=== PATIENT | female | born 1945 | race Native Hawaiian/Other Pacific Islander ===

== ENCOUNTER 2017-06-03 02:35 | Inpatient (IN) | payer MEDICARE, OTHER ==
[2017-06-03 02:44] VITALS: BMI 28.3
[2017-06-03] MEDS ORDERED: Sodium Chloride 0.9% 1,000 ML IV STA (02:47)
[2017-06-03] MEDS ORDERED: Morphine 4 mg/ml ISec IVP STA (02:48)
--- NOTE | 2017-06-03 02:52 | ED PDOC ---
Arrival/HPI - General Chief Complaint: Abdominal Pain Time Seen by Provider: 06/03/17 02:41 Historian: Patient - History of Present Illness Narrative History of Present Illness (Text): 06/03/17 02:49 71 y.o. female whose pmhx includes CABG/CAD with stents, DM, HTN, hyperlipidemia , and CRI who comes to the ED with complaint of blood diarrhea associated with lower abdominal pain beginning yesterday evening shortly after dinner. She reports a feeling of generalized weakness associated with it as well as nausea but no vomiting. No fever or cp or sob or dizziness or headache or urinary symptoms. No travel history or recent antibiotic use. Past Medical History - Reproductive Menopause: Yes - Cardiac Hx Hypertension: Yes Hx Pacemaker: No - Pulmonary Hx Respiratory Disorders: No - Neurological Hx Neurological Disorder: No Hx Paralysis: No - HEENT Hx HEENT Disorder: No - Renal Other/Comment: kidney disease stage 4 - Endocrine/Metabolic Hx Diabetes Mellitus Type 2: Yes - Hematological/Oncological Hx Blood Disorders: No Hx Blood Transfusions: No Hx Blood Transfusion Reaction: No - Integumentary Hx Dermatological Disorder: No - Musculoskeletal/Rheumatological Hx Musculoskeletal Disorders: No - Gastrointestinal Hx Gastrointestinal Disorders: No - Genitourinary/Gynecological Hx Genitourinary Disorders: No - Psychiatric Hx Emotional Abuse: No Hx Physical Abuse: No Hx Substance Use: No - Surgical History Other/Comment: cardiac bypass 2yrs 1 stent - Anesthesia Hx Anesthesia Reactions: No Hx Malignant Hyperthermia: No - Suicidal Assessment Feels Threatened In Home Enviroment: No Family/Social History Family/Social History: Unknown Family HX Smoking Status: Never Smoked Hx Alcohol Use: No Hx Substance Use: No Allergies/Home Meds Allergies/Adverse Reactions: Allergies erythromycin base Allergy (Severe, Verified 06/03/17 02:48) RASH Penicillins Allergy (Severe, Verified 06/03/17 02:48) RASH Home Medications: Home Meds Medication Instructions Recorded Confirmed Ezetimibe/Simvastatin [Vytorin 10 1 tab PO QPM 01/16/16 06/03/17 mg-10 mg] Lanthanum [Fosrenol] 500 mg PO ACBD 01/16/16 06/03/17 Metoprolol Succinate [Toprol Xl] 500 mg PO DAILY 01/18/16 06/03/17 Aspirin [Aspirin Chewable] 81 mg PO DAILY 06/03/17 06/03/17 Azilsartan Med/Chlorthalidone 1 tab PO DAILY 06/03/17 06/03/17 [Edarbyclor 40-25 mg Tablet] Clopidogrel [Plavix] 75 mg PO DAILY 06/03/17 06/03/17 Insulin Aspart, Recombinant 16 unit SC ACTID 06/03/17 06/03/17 [Novolog] Insulin Glargine,Hum.rec.anlog 22 unit SQ QPM 06/03/17 06/03/17 [Liliane Aguilar] Review of Systems - Physician Review All systems were reviewed & negative as marked: Yes - Review of Systems Constitutional: Fatigue Eyes: Normal ENT: Normal Respiratory: Normal Cardiovascular: Normal Gastrointestinal: Abdominal Pain, Diarrhea, Nausea, Hematochezia. absent: Vomiting Genitourinary Female: Normal Musculoskeletal: Normal Skin: Normal Neurological: Normal. absent: Headache, Dizziness, Focal Weakness Endocrine: absent: Polyuria, Polydipsia Hemo/Lymphatic: Normal Psychiatric: Normal Physical Exam Vital Signs Temp Pulse Resp BP Pulse Ox 06/03/17 05:00 50 L 16 143/55 L 100 06/03/17 03:27 98.4 F 53 L 18 143/53 L 100 Temperature: Afebrile Blood Pressure: Normal Pulse: Regular Respiratory Rate: Normal Appearance: Positive for: Non-Toxic Pain Distress: Mild Mental Status: Positive for: Alert and Oriented X 3 - Systems Exam Head: Present: Atraumatic, Normocephalic Pupils: Present: PERRL Conjunctiva: Present: Normal Mouth: Present: Moist Mucous Membranes Pharnyx: Present: Normal. No: ERYTHEMA, EXUDATE Neck: Present: Normal Range of Motion Respiratory/Chest: Present: Clear to Auscultation, Good Air Exchange. No: Respiratory Distress, Accessory Muscle Use Cardiovascular: Present: Regular Rate and Rhythm, Normal S1, S2. No: Murmurs Abdomen: Present: Tenderness (ttp in the LLQ), Normal Bowel Sounds. No: Distention, Peritoneal Signs Rectal: Present: Gross Blood (present on exam; no active hemorrhaging (exam chaperoned by devi Flores)) Back: Present: Normal Inspection Upper Extremity: Present: Normal Inspection. No: Cyanosis, Edema Lower Extremity: Present: Normal Inspection. No: Edema Neurological: Present: GCS=15, CN II-XII Intact, Speech Normal Skin: Present: Warm, Dry, Normal Color. No: Rashes Psychiatric: Present: Alert, Oriented x 3, Normal Insight, Normal Concentration Medical Decision Making ED Course and Treatment: 06/03/17 02:53 71 y.o. female with noted past medical history presenting with bloody diarrhea since the evening: Differential: colitis vs divertculitis vs gastroenteritis 06/03/17 05:05 CT Abdomen and Pelvis Without Intravenous Contrast Creator : Maryann Talavera MD IMPRESSION: - Question mild enterocolitis involving the distal ileum and ascending colon versus pseudo-wall thickening due to incomplete distention. Recommend clinical correlation. - Otherwise, no evidence of significant acute process. - See above for remaining findings. 06/03/17 05:15 Patient with noted history of bloody diarrhea with gross blood on rectal exam. H/H is stable. CT shows possible enterocolitis. Patient with prerenal azotemia with a history of DM - will need ivf, abx, and GI eval. 06/03/17 05:[address] Gastelum for placement on his service. - Lab Interpretations Lab Results: 06/03/17 03:20 06/03/17 03:20 Lab Results 06/03/17 03:20: pO2 122 H, VBG pH 7.32, VBG pCO2 43.0, VBG HCO3 22.2, VBG Total CO2 23.5, VBG O2 Sat (Calc) 98.4 H, VBG Base Excess -3.9 L, VBG Potassium 5.9 H , Sodium 136.0, Chloride 105.0, Glucose 245 H, Lactate 2.1, FiO2 21.0, Venous Blood Potassium 5.9 H 06/03/17 03:20: Sodium 137, Chloride 102, Potassium 5.2 H, Carbon Dioxide 22, Anion Gap 18, BUN 72 H, Creatinine 2.2 H, Est GFR ( Amer) 27, Est GFR ( Non-Af Amer) 22, Random Glucose 223 H, Calcium 10.1, Total Bilirubin 0.6, AST 42 H, ALT 50, Alkaline Phosphatase 44, Lactate Dehydrogenase 672, Total Creatine Kinase 140, Troponin I 0.02, Total Protein 7.8, Albumin 4.6, Globulin 3.2, Albumin/Globulin Ratio 1.4, Amylase 142 H, Lipase 167 06/03/17 03:20: PT 10.1, INR 0.93, APTT 23.2 L 06/03/17 03:20: WBC 7.5, RBC 3.63, Hgb 11.0 L, Hct 32.1 L, MCV 88.4, MCH 30.3, MCHC 34.3, RDW 12.3, Plt Count 124, MPV 9.1, Gran % 80.2 H, Lymph % (Auto) 16.6 L, [place] % (Auto) 2.9, Eos % (Auto) 0.3 L, Baso % (Auto) 0.0, Gran # 5.99, Lymph # 1.2, [place] # 0.2, Eos # 0.0, Baso # 0.00 - RAD Interpretation Radiology Orders: 06/03/17 02:47 CHEST PORTABLE [RAD] Stat 06/03/17 02:49 ABD & PELVIS W/O PO OR IV CONT [CT] Stat - EKG Interpretation EKG Interpretation (Text): 06/03/17 05:03 sinus bradycardia @ 55 with nonspecifict T wave abnormalities; QT is 506; other intervals normal; low qrs voltage; no old ekg for comparison. Interpreted by ED Physician: Yes Type: 12 lead EKG Comparison: No previous EKG avail. - Medication Orders Current Medication Orders: Metronidazole (Flagyl) 500 mg in 100 mls @ 100 mls/hr IVPB STAT STA PRN Reason: Protocol Stop: 06/03/17 06:13 Ceftriaxone Sodium (Rocephin 1 Gram Ivpb) 1 gm in 100 mls @ 200 mls/hr IV ONCE STA PRN Reason: Protocol Stop: 06/03/17 05:42 Discontinued Medications Famotidine (Pepcid) 20 mg IVP STAT STA Stop: 06/03/17 02:47 Last Admin: 06/03/17 03:26 Dose: 20 mg IVP Administration Document 06/03/17 03:26 YP (Rec: 06/03/17 03:26 YP [id number]) Charges for Administration # of IVP Administrations 1 Sodium Chloride (Sodium Chloride 0.9%) 1,000 mls @ 999 mls/hr IV .Q1H1M STA Stop: 06/03/17 03:47 Last Admin: 06/03/17 03:26 Dose: 999 mls/hr eMAR Start Stop Document 06/03/17 03:26 YP (Rec: 06/03/17 03:26 YP [id number]) Intravenous Solution Start Date 06/03/17 Start Time 03:26 End Date 06/03/17 End time 04:26 Total Infusion Time 60 Morphine Sulfate (Morphine) 4 mg IVP STAT STA Stop: 06/03/17 02:49 Last Admin: 06/03/17 03:26 Dose: 4 mg [facility] Pain Assessment Document 06/03/17 03:26 YP (Rec: 06/03/17 03:26 YP [id number]) Pain Reassessment Is this a pain reassessment? No Sleep Is patient sleeping during reassessment? No Presence of Pain Presence of Pain Yes IVP Administration Document 06/03/17 03:26 YP (Rec: 06/03/17 03:26 YP [id number]) Charges for Administration # of IVP Administrations 1 Re-Assess: [facility] Pain Assessment Document 06/03/17 04:26 YP (Rec: 06/03/17 05:09 YP [id number]) Pain Reassessment Is this a pain reassessment? Yes Sleep Is patient sleeping during reassessment? No Presence of Pain Presence of Pain No Ondansetron HCl (Zofran Inj) 4 mg IVP STAT STA Stop: 06/03/17 02:47 Last Admin: 06/03/17 03:26 Dose: 4 mg IVP Administration Document 06/03/17 03:26 YP (Rec: 06/03/17 03:27 YP [id number]) Charges for Administration # of IVP Administrations 1 Disposition/Present on Arrival - Present on Arrival Any Indicators Present on Arrival: No History of DVT/PE: No History of Uncontrolled Diabetes: No Urinary Catheter: No History of Decub. Ulcer: No History Surgical Site Infection Following: None - Disposition Have Diagnosis and Disposition been Completed?: Yes Diagnosis: Enterocolitis, Bloody diarrhea Disposition: HOSPITALIZED Disposition Time: 05:00 Patient Plan: Observation Patient Problems: Current Active Problems Problem Status Onset Bloody diarrhea Acute Enterocolitis Acute Condition: FAIR
[2017-06-03 03:48] LABS: EOS % 0.3 % (1.5-5.0); GRAN # 5.99 (1.4-6.5); GRAN % 80.2 % (50.0-68.0); HEMATOCRIT 32.1 % (36.0-48.0); LYMPH # 1.2 (1.2-3.4); LYMPH % 16.6 % (22.0-35.0); MEAN CELL VOLUME 88.4 fl (80.0-105.0); MEAN CORPUSCULAR HEMOGLOBIN 30.3 pg (25.0-35.0); MEAN CORPUSCULAR HGB CONC 34.3 g/dl (31.0-37.0); MEAN PLATELET VOLUME 9.1 fl (7.0-11.0); MONO # 0.2 (0.1-0.6); MONO % 2.9 % (1.0-6.0); RED CELL DISTRIBUTION WIDTH 12.3 % (11.5-14.5); WHITE BLOOD COUNT 7.5 10^3/ul (4.5-11.0)
[2017-06-03 03:52] LABS: ALB/GLOB RATIO 1.4 (1.1-1.8); BILIRUBIN,TOTAL 0.6 mg/dL (0.2-1.3); CALCIUM 10.1 mg/dL (8.4-10.5); POTASSIUM 5.2 mmol/L (3.6-5.0); TOTAL PROTEIN 7.8 g/dL (5.8-8.3)
[2017-06-03 03:56] LABS: VENOUS BLOOD GAS BASE EXCESS -3.9 mmol/L (0.0-2.0); VENOUS BLOOD PH 7.32 (7.32-7.43)
[2017-06-03 04:00] LABS: INR 0.93 (0.93-1.08); PARTIAL THROMBOPLASTIN TIME 23.2 Seconds (25.1-36.5)
[2017-06-03 04:03] LABS: TROPONIN I 0.02 ng/mL
--- NOTE | 2017-06-03 04:56 | CT ---
EXAM: CT Abdomen and Pelvis Without Intravenous Contrast EXAM DATE/TIME: 06/03/2017 2:49 AM CLINICAL HISTORY: 71 years old, female; Pain; Abdominal pain; Generalized; Additional info: Abd pain, bloody diarrhea; Renal insufficiency TECHNIQUE: Axial computed tomography images of the abdomen and pelvis without intravenous contrast. All CT scans at this facility use one or more dose reduction techniques, viz.: automated exposure control; ma/kV adjustment per patient size (including targeted exams where dose is matched to indication; i.e. head); or iterative reconstruction technique. Coronal and sagittal reformatted images were created and reviewed. COMPARISON: No relevant prior studies available. FINDINGS: LIMITATIONS: Mild streak/motion artifact. LOWER THORAX: Heart appears mildly enlarged. Sternotomy wires and multiple mediastinal surgical clips noted, most likely from prior CABG. ABDOMEN: LIVER: No acute abnormality of the liver identified. GALLBLADDER AND BILE DUCTS: No CT evidence of acute cholecystitis. No evidence of significant biliary ductal dilatation. PANCREAS: No CT evidence of acute pancreatitis. SPLEEN: No acute abnormality of the spleen identified. ADRENALS: No acute abnormality of the adrenal glands identified. KIDNEYS AND URETERS: Bilateral perinephric stranding, a nonspecific finding. No renal stones, hydronephrosis, or hydroureter seen. STOMACH AND BOWEL: Mild wall thickening of the distal ileum and ascending colon. This could represent pseudo-wall thickening due to underdistention/incomplete distension versus mild enterocolitis. Colonic diverticulosis, with no evidence of acute diverticulitis. Otherwise, no significant abnormality of the bowel is identified. No evidence of bowel obstruction. No evidence of pneumatosis intestinalis. APPENDIX: High density material seen in the lumen of the appendix. This could represent retained oral contrast from a prior study versus appendicoliths. There are no findings to suggest acute appendicitis.. PELVIS: BLADDER: No acute abnormality of the bladder identified. REPRODUCTIVE:No acute abnormality of the reproductive organs is seen. No acute abnormality of the uterus identified. No evidence of large adnexal masses. ABDOMEN and PELVIS: INTRAPERITONEAL SPACE: No evidence of free intraperitoneal air or fluid. BONES/JOINTS: Bony structures appear demineralized. SOFT TISSUES: No acute abnormality of the visualized soft tissues is seen. VASCULATURE: Atherosclerotic calcification. No evidence of abdominal aortic aneurysm. LYMPH NODES: No evidence of diffuse lymphadenopathy. IMPRESSION: - Question mild enterocolitis involving the distal ileum and ascending colon versus pseudo-wall thickening due to incomplete distention. Recommend clinical correlation. - Otherwise, no evidence of significant acute process. - See above for remaining findings.
[2017-06-03] MEDS ORDERED: cefTRIAXone 1 gm 1 GM/100 ML BAG IV STA (05:13)
[2017-06-03] MEDS ORDERED: metroNIDAZOLE IV 500 mg/100 ml 500 MG/100 ML BAG IVPB STA (05:14)
[2017-06-03 06:37] LABS: VENOUS BLOOD GAS BASE EXCESS -5.9 mmol/L (0.0-2.0); VENOUS BLOOD PH 7.24 (7.32-7.43)
[2017-06-03] MEDS ORDERED: Dextrose 5%/0.9% NS 1,000 ML IV SCH (06:45)
--- NOTE | 2017-06-03 08:57 | RAD ---
HISTORY: abd pain COMPARISON: No prior. FINDINGS: LUNGS: No active pulmonary disease. PLEURA: No significant pleural effusion identified, no pneumothorax apparent. CARDIOVASCULAR: Normal. OSSEOUS STRUCTURES: Sternal wires VISUALIZED UPPER ABDOMEN: Normal. OTHER FINDINGS: None. IMPRESSION: No active disease.
[2017-06-03] MEDS ORDERED: Morphine 2 mg/ml ISec IVP PRN (09:12)
[2017-06-03] MEDS ORDERED: Oxycodone/Acetaminophen 5/325 mg Tab PO PRN (09:13)
[2017-06-03] MEDS ORDERED: Vancomycin 2 GM in Sodium Chloride 0.9% 500 ML IVPB ONE (09:17)
[2017-06-03] MEDS ORDERED: Ciprofloxacin 400mg/200ml D5W 400 MG/200 ML BAG IVPB SCH (10:00)
--- NOTE | 2017-06-03 10:34 | HP ---
CHIEF COMPLAINT AND HISTORY OF PRESENT ILLNESS: This is a 71-year-old female who is coming into hospital with a past medical history of coronary artery disease, CABG with stents, diabetes type 2, hypertension, dyslipidemia, and CKD. She says she started having bloody diarrhea that was associated with lower abdominal pain. The patient says that she started having nausea, but no vomiting. She was having diarrhea. She was generalized weakness. The patient denies any chest pain or shortness of breath. No headaches. No fevers or chills. They initially thought that it may be food related. ALLERGIES: PENICILLIN AND ERYTHROMYCIN. HOME MEDICATIONS: Vytorin, lanthanum, Toprol, aspirin, Edarbyclor, Plavix, NovoLog, insulin, and glargine. PAST MEDICAL HISTORY: As above. FAMILY HISTORY: Noncontributory. SOCIAL HISTORY: She does not smoke or drink. Denies alcohol and denies drug use. REVIEW OF SYSTEMS: All other review of symptoms are within normal limits, except I was mentioned. PHYSICAL EXAMINATION: VITAL SIGNS: Temperature 98.4, pulse of 53, blood pressure 143/53, respirations 18, O2 saturation 100%, height 5 feet 1 inch, weight 150 pounds, and BMI 28. GENERAL: The patient lying in bed, uncomfortable, and in no acute distress. HEENT: Atraumatic and normocephalic. Anicteric sclerae. Moist mucosa. [place] conjunctivae. No oral lesions. NECK: No JVD, anterior and posterior adenopathy, thyromegaly, or bruits. CARDIOVASCULAR: S1 and S2 regular. No murmur, rubs, or gallop. LUNGS: Clear to auscultation bilaterally. No wheezes, rales, or rhonchi. ABDOMEN: Bowel sounds are positive. Soft, nontender and nondistended. No hepatosplenomegaly. No rebound and no guarding EXTREMITIES: No cyanosis, clubbing, or edema. NEUROLOGIC: No facial asymmetry. Tongue is midline. No vulva deviation. Power is 5/5 upper extremity and lower extremity. Sensation intact in upper extremity and lower extremity. PSYCHIATRIC: She is awake, alert and oriented x3. No anxiety or depression. She has normal affect. GENITOURINARY: No CVA tenderness. VASCULAR: 2+ pulses in the carotid pulses and pedal pulses. SKIN: No erythema or nodules SPINE: Shows normal curvature. EXTREMITIES: No cyanosis and clubbing, no edema. LABORATORY DATA: White count of 7.5 and hemoglobin of 11. INR is 0.93. Sodium is 137, potassium 5.2, creatinine 2.2, amylase is 142, and lipase is 167. Chest x-ray shows no active disease. CT of the abdomen and pelvis shows questionable mild enterocolitis involving the distal ileum and ascending colon versus pseudo-wall thickening due to incomplete distention. ASSESSMENT: 1. Colitis. 2. Coronary artery disease, status post coronary artery bypass grafting with stent. 3. Diabetes type 2. 4. Hypertension. 5. Dyslipidemia. 6. Chronic kidney disease stage IV, stable. 7. Hypokalemia. 8. Penicillin allergy and erythromycin allergy. PLAN: The patient is going to be admitted to the hospital. She is going to be placed on liquid diet. She does have diabetes, hypertension, coronary artery disease, and inflammation that is in the colon. This may be ischemic colitis. I did speak to Dr. Vitale from GI, who will be seeing the patient in consultation. The patient has a penicillin allergy, so I will place the patient on Cipro. We will get ID evaluation because this is a restricted antibiotic. The patient is going to be placed on Flagyl. I will also place the patient on D5 normal saline for hypokalemia and for the diarrhea that the patient has to prevent volume depletion. The patient is on Toprol, this will be continued and he is on aspirin, I will continue that. For now, the patient is currently comfortable. I will continue the patient's Plavix, hold the patient's blood pressure medications and insulin and continue to follow with vitals and fingerstick. I did speak to the patient's at the bedside to give an update on the patient's diagnoses and plan of care. The patient is going to have repeat blood work done tomorrow. The patient had EKG and she was found to have tachycardic initially. She is feeling better. Pain is better controlled. Dariusz Gastelum MD
[2017-06-03] MEDS: Aztreonam 1 Gm in NS 100mL 100 ML IVPB SCH ×2 (11:11→17:41)
[2017-06-03] MEDS: Metoprolol Succinate 50 mg XL Tab PO SCH (11:12)
[2017-06-03 11:51] LABS: URINE BILIRUBIN NEGATIVE (NEGATIVE); URINE BLOOD NEGATIVE (NEGATIVE); URINE GLUCOSE (UA) NEGATIVE (NEGATIVE); URINE KETONE NEGATIVE (NEGATIVE); URINE LEUKOCYTE ESTERASE TRACE Leu/uL (NEGATIVE); URINE PROTEIN NEGATIVE mg/dL (<30 mg/dL); URINE UROBILINOGEN 0.2 E.U./dL (<1 E.U./dL)
[2017-06-03 11:56] LABS: URINE APPEARANCE CLEAR (CLEAR); URINE COLOR YELLOW (YELLOW)
[2017-06-03 12:18] LABS: URINE BACTERIA TRACE (NEG); URINE EPITHELIAL CELLS 0 - 2 /hpf (0-5); URINE RBC NEGATIVE /hpf (0-2)
--- NOTE | 2017-06-03 12:52 | CP.PCM.CON ---
History of Present Illness - History of Present Illness History of Present Illness: 71 year old female with PMH of CAD S/P CABG, S/P PCI, DM, HTN, dyslipidemia, chronic renal failure came in to [facility] complaining of lower abdominal pain since yesterday associated with bloody diarrhea. She states that she only ate steak yesterday and has not eaten anything else out of the ordinary. She also has generalized weakness but denies fever or chills, no nausea or vomiting, no dysuria, no dysphagia or odynophagia, no headache or dizziness, no chest pain, no SOB, no cough or colds, no sore throat. She denies recent travel outside of [place] in the past 3 months, no animal contacts. She has not been on antibiotics in the past [address] scan of the abdomen and pelvis showed enterocolitis. Infectious diseases consult is requested to further evaluate and manage. Review of Systems - Review of Systems All systems: reviewed and no additional remarkable complaints except (as per HPI ) Past Patient History - Past Social History Smoking Status: Never Smoked - CARDIAC Hx Hypertension: Yes Hx Pacemaker: No - PULMONARY Hx Respiratory Disorders: No - NEUROLOGICAL Hx Neurological Disorder: No - HEENT Hx HEENT Problems: No - RENAL Other/Comment: kidney disease stage 4 - ENDOCRINE/METABOLIC Hx Diabetes Mellitus Type 2: Yes - HEMATOLOGICAL/ONCOLOGICAL Hx Blood Disorders: No - INTEGUMENTARY Hx Dermatological Problems: No - MUSCULOSKELETAL/RHEUMATOLOGICAL Hx Musculoskeletal Disorders: No Hx Falls: No - GASTROINTESTINAL Hx Gastrointestinal Disorders: No - GENITOURINARY/GYNECOLOGICAL Hx Genitourinary Disorders: No - PSYCHIATRIC Hx Emotional Abuse: No Hx Physical Abuse: No - SURGICAL HISTORY Other/Comment: cardiac bypass 2yrs 1 stent - ANESTHESIA Hx Anesthesia Reactions: No Hx Malignant Hyperthermia: No Meds Allergies/Adverse Reactions: Allergies Allergy/AdvReac Type Severity Reaction Status Date / Time erythromycin base Allergy Severe RASH Verified 06/03/17 02:48 Penicillins Allergy Severe RASH Verified 06/03/17 02:48 - Medications Medications: Current Medications Acetaminophen (Tylenol 325mg Tab) 650 mg PO Q4H PRN PRN Reason: Pain, Mild (1-3) Aspirin (Aspirin Chewable) 81 mg PO DAILY JOSE Clopidogrel Bisulfate (Plavix) 75 mg PO DAILY [facility] Dextrose/Sodium Chloride (Dextrose 5%/0.9% Ns 1000 Ml) 1,000 mls @ 75 mls/hr IV .[id number] JOSE Stop: 06/04/17 09:24 Ciprofloxacin (Cipro 400mg/200ml Dsw) 400 mg in 200 mls @ 133.3 mls/hr IVPB Q12 JOSE PRN Reason: Protocol Stop: 06/03/17 11:31 Insulin Human Regular (Humulin R High) 0 units SC ACHS JOSE PRN Reason: Protocol Metoprolol Succinate (Toprol Xl) 50 mg PO DAILY [facility] Morphine Sulfate (Morphine) 2 mg IVP Q4H PRN PRN Reason: Pain, severe (8-10) Oxycodone/Acetaminophen (Percocet 5/325 Mg Tab) 1 tab PO Q4H PRN PRN Reason: Pain, moderate (4-7) Stop: 06/06/17 09:14 Physical Exam - Constitutional Appears: Non-toxic - Head Exam Head Exam: NORMAL INSPECTION - ENT Exam ENT Exam: Mucous Membranes Moist - Neck Exam Neck exam: Negative for: Lymphadenopathy, Meningismus - Respiratory Exam Respiratory Exam: absent: Rales, Rhonchi - Cardiovascular Exam Cardiovascular Exam: +S1, +S2 - GI/Abdominal Exam GI & Abdominal Exam: Soft, Tenderness (lower quadrants). absent: Distended, Firm, Guarding, Rebound, Rigid Results - Vital Signs Recent Vital Signs: Last Vital Signs Temp 98.4 F 06/03/17 03:27 Pulse 50 L 06/03/17 08:29 Resp 18 06/03/17 08:29 BP 143/55 L 06/03/17 08:29 Pulse Ox 100 06/03/17 05:00 - Labs Result Diagrams: 06/03/17 03:20 06/03/17 03:20 Labs: Laboratory Results - last 24 hr 06/03/17 06:20 pO2 51 VBG pH 7.24 L VBG pCO2 51.0 VBG HCO3 21.9 VBG Total CO2 23.5 VBG O2 Sat (Calc) 86.1 H VBG Base Excess -5.9 L VBG Potassium 4.4 Sodium 138.0 Chloride 107.0 Glucose 191 H Lactate 1.6 FiO2 21.0 Venous Blood Potassium 4.4 Assessment & Plan - Assessment and Plan (Free Text) Plan: Assessment Consider acute enterocolitis, R/O infectious etiology CAD S/P CABG S/P PCI DM HTN dyslipidemia chronic renal failure Plan Started patient on a dose of IV Vancomycin and Azactam and Flagyl pending blood and stool cx, stool for C. diff., fecal leukocytes follow up GI recommendations will monitor clinically
[2017-06-03] MEDS: metroNIDAZOLE IV 500 mg/100 ml 500 MG/100 ML BAG IVPB SCH ×3 (13:08→21:47)
[2017-06-03] MEDS: Insulin Reg-HIGH-Coverage SC SCH ×3 (13:12→22:30)
--- NOTE | 2017-06-03 23:23 | CARD ---
APPROVED REPORT EKG Measurement Heart [id number] <Conclusion> Sinus bradycardia Nonspecific T wave abnormality Prolonged QT Abnormal ECG
--- NOTE | 2017-06-04 03:03 | CON ---
DATE: 06/03/2017 HISTORY OF PRESENT ILLNESS: This patient was seen and evaluated earlier today. This is a 71-year-old patient presented with an acute onset of diarrhea since yesterday. The patient said that she ate steak, which she said was nearly expiry date, and she cooked it and kept it to one more day then ate the steak, and it happened *------*. She also noticed the stool was like a bloody in color after that and worsening of the cramping, abdominal pain, came to the emergency room. She also got a fever. She never had a similar episodes day four. PAST MEDICAL HISTORY: Other past medical history is significant for diabetes mellitus, hypertension, coronary artery disease, status post CABG, status post PCI, dyslipidemia, and chronic kidney disease. ALLERGIES: PENICILLIN AND ERYTHROMYCIN. FAMILY HISTORY: Noncontributory. REVIEW OF SYSTEMS: Positive as above. All other systems reviewed. PHYSICAL EXAMINATION: GENERAL: The patient is lying on the bed, not in acute distress. VITAL SIGNS: Temperature is 98.4, blood pressure 118/51, pulse 52, respiration is 20, and O2 saturation 100%. HEENT: Atraumatic. Anicteric. NECK: Supple. HEART: S1 and S2 heard. LUNGS: Bilateral air entry present. ABDOMEN: Soft. There is a mild tenderness present on deep palpation. The epigastric in the right lower quadrant area, no rebound or guarding. EXTREMITIES: No edema, no cyanosis. LABORATORY DATA: Hemoglobin 11.0, hematocrit 32.1, WBC 7.5 and platelets 124. BUN 72, creatinine 2.2, amylase 142. The CT scan of the abdomen and pelvis was reviewed. IMPRESSION: This is a 71-year-old patient with history of diabetes mellitus, coronary artery disease, dyslipidemia presented with acute onset of an abdominal pain, diarrhea, and fever. She said this happened after she ate steak, which was close to the expiry date. CT scan shows some thickening and inflammatory changes in the terminal ileum and ascending colon area. The differential diagnoses should include ischemic colitis in view of the distribution of the colitis and also infectious colitis is to be considered. Inflammatory bowel disease less likely in her condition with this clinical presentation. Other comorbidities include diabetes mellitus, hypertension, dyslipidemia, and chronic kidney disease. RECOMMENDATIONS: 1. IV hydration. 2. Follow of the culture including stool culture. 3. We will empirically start the patient on Cipro 250 mg IV q. 12 hour and also Flagyl 500 mg q. 8 hour. Infectious Disease consult has been also requested. Discussed with Dr. Gastelum. Discussed with the family also, the patient never had a colonoscopy. It is reasonable to consider colonoscopy as an outpatient. Thank you very much for allowing me to participate in the care of the patient. Ja Vitale MD
[2017-06-04] MEDS: metroNIDAZOLE IV 500 mg/100 ml 500 MG/100 ML BAG IVPB SCH ×3 (05:53→21:27)
[2017-06-04 07:29] LABS: HEMATOCRIT 30.4 % (36.0-48.0); MEAN CELL VOLUME 88.1 fl (80.0-105.0); MEAN CORPUSCULAR HGB CONC 32.9 g/dl (31.0-37.0); MEAN PLATELET VOLUME 8.8 fl (7.0-11.0); RED CELL DISTRIBUTION WIDTH 12.4 % (11.5-14.5); WHITE BLOOD COUNT 7.1 10^3/ul (4.5-11.0)
[2017-06-04 07:40] LABS: ALB/GLOB RATIO 1.3 (1.1-1.8); BILIRUBIN,TOTAL 0.4 mg/dL (0.2-1.3); CALCIUM 9.2 mg/dL (8.4-10.5); POTASSIUM 4.6 mmol/L (3.6-5.0); TOTAL PROTEIN 6.7 g/dL (5.8-8.3)
[2017-06-04] MEDS: Insulin Reg-HIGH-Coverage SC SCH ×4 (07:46→22:51)
[2017-06-04] MEDS: Metoprolol Succinate 50 mg XL Tab PO SCH (09:25)
[2017-06-04] MEDS: Aztreonam 1 Gm in NS 100mL 100 ML IVPB SCH ×3 (10:54→22:50)
--- NOTE | 2017-06-04 12:12 | CP.PCM.PN ---
<Pam Fonseca - Last Filed: 06/04/17 12:11> Subjective - Date & Time of Evaluation Date of Evaluation: 06/04/17 Time of Evaluation: 10:35 - Subjective Subjective: S&E at bedside, patient endorses when she vomits, she has dark bloody BM, had episodes last night and this am. She denies SOB or chest pain. On clear liquids Hbg is steady. Objective - Vital Signs/Intake and Output Vital Signs (last 24 hours): Temp Pulse Resp BP Pulse Ox 98.3 F 56 L 17 136/50 L 99 06/04/17 07:30 06/04/17 07:30 06/04/17 07:30 06/04/17 09:25 06/04/17 07:30 Intake and Output: 06/04/17 06/04/17 06:59 18:59 Intake Total 320 Output Total 500 Balance -180 - Medications Medications: Current Medications Acetaminophen (Tylenol 325mg Tab) 650 mg PO Q4H PRN PRN Reason: Pain, Mild (1-3) Last Admin: 06/04/17 07:46 Dose: 650 mg Aspirin (Aspirin Chewable) 81 mg PO DAILY [facility] Last Admin: 06/04/17 09:25 Dose: 81 mg Clopidogrel Bisulfate (Plavix) 75 mg PO DAILY [facility] Last Admin: 06/04/17 09:25 Dose: 75 mg Metronidazole (Flagyl) 500 mg in 100 mls @ 100 mls/hr IVPB Q8 JOSE PRN Reason: Protocol Last Admin: 06/04/17 05:53 Dose: 100 mls/hr Aztreonam (Azactam 1 Gm) 100 mls @ 100 mls/hr IVPB Q8 JOSE PRN Reason: Protocol Stop: 06/11/17 11:01 Last Admin: 06/04/17 10:54 Dose: Not Given Insulin Human Regular (Humulin R High) 0 units SC ACHS JOSE PRN Reason: Protocol Last Admin: 06/04/17 11:42 Dose: Not Given Metoprolol Succinate (Toprol Xl) 50 mg PO DAILY [facility] Last Admin: 06/04/17 09:25 Dose: 50 mg Morphine Sulfate (Morphine) 2 mg IVP Q4H PRN PRN Reason: Pain, severe (8-10) Oxycodone/Acetaminophen (Percocet 5/325 Mg Tab) 1 tab PO Q4H PRN PRN Reason: Pain, moderate (4-7) Stop: 06/06/17 09:14 Last Admin: 06/04/17 00:52 Dose: 1 tab - Labs Labs: 06/04/17 07:24 06/04/17 07:24 PT 10.1 SECONDS (9.4-12.5) 06/03/17 03:20 INR 0.93 (0.93-1.08) 06/03/17 03:20 APTT 23.2 Seconds (25.1-36.5) L 06/03/17 03:20 - Constitutional Appears: No Acute Distress - Eye Exam Eye Exam: Normal appearance. absent: Scleral icterus - ENT Exam ENT Exam: Mucous Membranes Moist - Neck Exam Neck Exam: Normal Inspection - Respiratory Exam Respiratory Exam: NORMAL BREATHING PATTERN. absent: Respiratory Distress - Cardiovascular Exam Cardiovascular Exam: +S1, +S2 - GI/Abdominal Exam GI & Abdominal Exam: Soft, Tenderness, Normal Bowel Sounds. absent: Guarding, Rebound - Extremities Exam Extremities Exam: absent: Calf Tenderness, Pedal Edema - Neurological Exam Neurological Exam: Alert, Awake, Oriented x3 - Skin Skin Exam: Dry, Warm Assessment and Plan - Assessment and Plan (Free Text) Assessment: ASSESSMENT: Acute abdominal pain/fever/diarrhea Infectious VS Ischemic Colitis CAD/CABG DM Dyslipidemia CKD PLAN: on Azactam/Flagyl as per ID monitor H/H on Aspirin and Plavix on clear liquid recommend outpatient colonoscopy stool studies: culture/O&P/cdiff pending to be collected Seen and discussed w/ Dr. Vitale. <Ja Vitale V - Last Filed: 06/04/17 20:39> Objective - Vital Signs/Intake and Output Vital Signs (last 24 hours): Temp Pulse Resp BP Pulse Ox 98.3 F 54 L 18 167/54 H 98 06/04/17 16:00 06/04/17 16:00 06/04/17 16:00 06/04/17 16:00 06/04/17 16:00 Intake and Output: 06/04/17 06/05/17 18:59 06:59 Intake Total 640 Balance 640 - Medications Medications: Current Medications Acetaminophen (Tylenol 325mg Tab) 650 mg PO Q4H PRN PRN Reason: Pain, Mild (1-3) Last Admin: 06/04/17 07:46 Dose: 650 mg Aspirin (Aspirin Chewable) 81 mg PO DAILY [facility] Last Admin: 06/04/17 09:25 Dose: 81 mg Clopidogrel Bisulfate (Plavix) 75 mg PO DAILY [facility] Last Admin: 06/04/17 09:25 Dose: 75 mg Metronidazole (Flagyl) 500 mg in 100 mls @ 100 mls/hr IVPB Q8 JOSE PRN Reason: Protocol Last Admin: 06/04/17 13:00 Dose: 100 mls/hr Aztreonam (Azactam 1 Gm) 100 mls @ 100 mls/hr IVPB Q8 JOSE PRN Reason: Protocol Stop: 06/11/17 11:01 Last Admin: 06/04/17 13:00 Dose: 100 mls/hr Insulin Human Regular (Humulin R High) 0 units SC ACHS JO[facility] PRN Reason: Protocol Last Admin: 06/04/17 17:02 Dose: Not Given Metoprolol Succinate (Toprol Xl) 50 mg PO DAILY [facility] Last Admin: 06/04/17 09:25 Dose: 50 mg Morphine Sulfate (Morphine) 2 mg IVP Q4H PRN PRN Reason: Pain, severe (8-10) Oxycodone/Acetaminophen (Percocet 5/325 Mg Tab) 1 tab PO Q4H PRN PRN Reason: Pain, moderate (4-7) Stop: 06/06/17 09:14 Last Admin: 06/04/17 00:52 Dose: 1 tab - Labs Labs: 06/04/17 07:24 06/04/17 07:24 PT 10.1 SECONDS (9.4-12.5) 06/03/17 03:20 INR 0.93 (0.93-1.08) 06/03/17 03:20 APTT 23.2 Seconds (25.1-36.5) L 06/03/17 03:20 Attending/Attestation - Attestation I have personally seen and examined this patient.: Yes I have fully participated in the care of the patient.: Yes I have reviewed all pertinent clinical information, including history, physical exam and plan: Yes Notes (Text): This is an addendum to GI progress report dictated by Pam Fonseca APN.The patient was seen and examined earlier. Medical records, lab studies, imagings were reviewed. Last 24 hours events reviewed. Agreed with the above treatment plan as outlined in Pam Fonseca APN's notes the with the addition of the following patient has episodes of diarrhea with blood per rectum On examination has tenderness on deep palpation in the right lower quadrant area Patient does have enterocolitis ischemia versus infectious etiology to be considered History of diabetes mellitus coronary artery disease Continue liquid diet and antibiotics Discussed with the patient and patient's who was at bedside 06/04/17 20:37
--- NOTE | 2017-06-04 12:31 | CP.PCM.PN ---
Subjective - Date & Time of Evaluation Date of Evaluation: 06/04/17 Time of Evaluation: 11:30 - Subjective Subjective: Comfortable in bed, still with blood in the stool, less abdominal pain. No fevers overnight. Objective - Vital Signs/Intake and Output Vital Signs (last 24 hours): Temp Pulse Resp BP Pulse Ox 98.3 F 56 L 17 136/50 L 99 06/04/17 07:30 06/04/17 07:30 06/04/17 07:30 06/04/17 09:25 06/04/17 07:30 Intake and Output: 06/04/17 06/04/17 06:59 18:59 Intake Total 320 Output Total 500 Balance -180 - Medications Medications: Current Medications Acetaminophen (Tylenol 325mg Tab) 650 mg PO Q4H PRN PRN Reason: Pain, Mild (1-3) Last Admin: 06/04/17 07:46 Dose: 650 mg Aspirin (Aspirin Chewable) 81 mg PO DAILY [facility] Last Admin: 06/04/17 09:25 Dose: 81 mg Clopidogrel Bisulfate (Plavix) 75 mg PO DAILY [facility] Last Admin: 06/04/17 09:25 Dose: 75 mg Metronidazole (Flagyl) 500 mg in 100 mls @ 100 mls/hr IVPB Q8 JOSE PRN Reason: Protocol Last Admin: 06/04/17 05:53 Dose: 100 mls/hr Aztreonam (Azactam 1 Gm) 100 mls @ 100 mls/hr IVPB Q8 JOSE PRN Reason: Protocol Stop: 06/11/17 11:01 Insulin Human Regular (Humulin R High) 0 units SC ACHS JOSE PRN Reason: Protocol Last Admin: 06/04/17 07:46 Dose: Not Given Metoprolol Succinate (Toprol Xl) 50 mg PO DAILY [facility] Last Admin: 06/04/17 09:25 Dose: 50 mg Morphine Sulfate (Morphine) 2 mg IVP Q4H PRN PRN Reason: Pain, severe (8-10) Oxycodone/Acetaminophen (Percocet 5/325 Mg Tab) 1 tab PO Q4H PRN PRN Reason: Pain, moderate (4-7) Stop: 06/06/17 09:14 Last Admin: 06/04/17 00:52 Dose: 1 tab - Labs Labs: 06/04/17 07:24 06/04/17 07:24 PT 10.1 SECONDS (9.4-12.5) 06/03/17 03:20 INR 0.93 (0.93-1.08) 06/03/17 03:20 APTT 23.2 Seconds (25.1-36.5) L 06/03/17 03:20 - Constitutional Appears: Non-toxic - Head Exam Head Exam: NORMAL INSPECTION - ENT Exam ENT Exam: Mucous Membranes Moist - Neck Exam Neck Exam: absent: Lymphadenopathy, Meningismus - Respiratory Exam Respiratory Exam: Decreased Breath Sounds - Cardiovascular Exam Cardiovascular Exam: +S1, +S2 - GI/Abdominal Exam GI & Abdominal Exam: Soft, Tenderness (mild, lower quadrants). absent: Distended, Firm, Guarding, Rigid, Rebound Assessment and Plan - Assessment and Plan (Free Text) Plan: Assessment Consider acute enterocolitis, R/O infectious etiology CAD S/P CABG S/P PCI DM HTN dyslipidemia chronic renal failure Plan has been given a dose of IV Vancomycin and continue Azactam and Flagyl day 2 pending blood and stool cx, stool for C. diff., fecal leukocytes follow up further GI recommendations will continue to monitor clinically
--- NOTE | 2017-06-04 22:21 | PN ---
DATE: 06/04/2017 SUBJECTIVE: The patient has no complaints of any chest pain. No shortness of breath. She states she is having bleeding when she has bowel movements. Her pain is improved. PHYSICAL EXAMINATION VITAL SIGNS: Temperature is 98.3, pulse of 54, blood pressure 167/54 and respirations 18. GENERAL: The patient is lying in bed, flat, comfortable. HEENT: No oral lesion. Anicteric sclerae. Moist mucosa. NECK: No JVD, adenopathy, or thyromegaly. CARDIOVASCULAR: S1 and S2, regular. No murmurs, rubs, or gallops. LUNGS: Clear to auscultation bilaterally. No wheeze, rales, or rhonchi. ABDOMEN: Bowel sounds are positive, soft, nontender and nondistended. EXTREMITIES: No cyanosis, clubbing or edema. LABORATORY DATA: White count of 7.1, hemoglobin is 10. Creatinine is 1.8. ASSESSMENT: 1. Right-sided colitis. 2. Coronary artery disease, status post coronary artery bypass grafting. 3. Diabetes type 2. 4. Hypertension. 5. Dyslipidemia. 6. Chronic kidney disease stage IV. 7. Hypokalemia,improved. 8. PENICILLIN AND ERYTHROMYCIN ALLERGY. PLAN: The patient is currently feeling better. She is tolerating her liquid diet. She is continuing on IV antibiotics with vancomycin and Azactam as well as Flagyl. She had stool for C. diff that has been ordered. The patient's blood cultures are negative as well as urine culture. She is being followed by Infectious Disease and GI. I appreciate their input. I did review their notes. She will need an outpatient colonoscopy. The patient is on morphine for pain as needed. She is on Plavix for her coronary artery disease. She is also on metoprolol and aspirin for her coronary artery disease. We will repeat the patient's blood work tomorrow. Dariusz Gastelum MD
[2017-06-05] MEDS: metroNIDAZOLE IV 500 mg/100 ml 500 MG/100 ML BAG IVPB SCH ×3 (05:38→22:00)
[2017-06-05] MEDS: Aztreonam 1 Gm in NS 100mL 100 ML IVPB SCH ×3 (06:44→22:01)
--- NOTE | 2017-06-05 07:00 | PN ---
DATE: 06/05/2017 SUBJECTIVE: The patient has no complaints of any chest pain. No shortness of breath. No headaches. She initially came in because of colitis and abdominal pain. Her abdominal pain has improved. She is able to tolerate her diet. She has no headaches or dizziness. She is having bloody bowel movements that has also improved. She was seen by GI and Infectious Disease. She is advised to get a colonoscopy as an outpatient. PHYSICAL EXAMINATION: VITAL SIGNS: Temperature is 98.3, pulse of 54, blood pressure 167/54, and respirations 18. GENERAL: The patient is lying in bed, flat, comfortable. HEENT: No oral lesion. Anicteric sclerae. Moist mucosa. NECK: No JVD, adenopathy, or thyromegaly. CARDIOVASCULAR: S1 and S2, regular. No murmurs, rubs, or gallops. LUNGS: Clear to auscultation bilaterally. No wheeze, rales, or rhonchi. ABDOMEN: Bowel sounds are positive, soft, nontender and nondistended. EXTREMITIES: No cyanosis, clubbing or edema. LABS: White count of 7.1, hemoglobin is 10, and creatinine is 1.8. ASSESSMENT: 1. Colitis. 2. Coronary artery disease, status post coronary artery bypass grafting. 3. Diabetes type 2. 4. Hypertension. 5. Dyslipidemia. 6. Chronic kidney disease stage IV. 7. Hypokalemia, improved. 8. PENICILLIN AND ERYTHROMYCIN ALLERGY. PLAN: The patient is currently feeling well. She is on aztreonam antibiotics. She is on Flagyl as well. She had blood cultures and urine cultures that were done, which were negative. She is on liquid diet. She is on her aspirin and Plavix because of her coronary artery disease. The patient may need advancement of her diet, if she is able to tolerate her diet. We will be able to discharge the patient. She has C. diff that was ordered that has yet to be collected. Nurses were informed about collection. Dariusz Gastelum MD
[2017-06-05 07:15] LABS: ALB/GLOB RATIO 1.3 (1.1-1.8); BILIRUBIN,TOTAL 0.5 mg/dL (0.2-1.3); CALCIUM 9.6 mg/dL (8.4-10.5); POTASSIUM 4.1 mmol/L (3.6-5.0); TOTAL PROTEIN 7.1 g/dL (5.8-8.3)
[2017-06-05 07:16] LABS: HEMATOCRIT 31.5 % (36.0-48.0); MEAN CELL VOLUME 87.7 fl (80.0-105.0); MEAN CORPUSCULAR HEMOGLOBIN 29.5 pg (25.0-35.0); MEAN CORPUSCULAR HGB CONC 33.7 g/dl (31.0-37.0); RED CELL DISTRIBUTION WIDTH 12.3 % (11.5-14.5); WHITE BLOOD COUNT 7.5 10^3/ul (4.5-11.0)
[2017-06-05] MEDS: Insulin Reg-HIGH-Coverage SC SCH ×4 (08:59→22:01)
[2017-06-05] MEDS: Metoprolol Succinate 50 mg XL Tab PO SCH (09:01)
--- NOTE | 2017-06-05 13:28 | CP.PCM.PN ---
Subjective - Date & Time of Evaluation Date of Evaluation: 06/05/17 Time of Evaluation: 11:35 - Subjective Subjective: Less blood in the stool, no fevers, still with abdominal pain. Objective - Vital Signs/Intake and Output Vital Signs (last 24 hours): Temp Pulse Resp BP Pulse Ox 99 F 66 18 160/61 H 98 06/05/17 08:17 06/05/17 09:01 06/05/17 08:17 06/05/17 09:01 06/05/17 08:17 Intake and Output: 06/05/17 06/05/17 06:59 18:59 Intake Total 720 Output Total 400 Balance 320 - Medications Medications: Current Medications Acetaminophen (Tylenol 325mg Tab) 650 mg PO Q4H PRN PRN Reason: Pain, Mild (1-3) Last Admin: 06/04/17 07:46 Dose: 650 mg Aspirin (Aspirin Chewable) 81 mg PO DAILY [facility] Last Admin: 06/05/17 09:01 Dose: 81 mg Clopidogrel Bisulfate (Plavix) 75 mg PO DAILY [facility] Last Admin: 06/05/17 09:02 Dose: 75 mg Metronidazole (Flagyl) 500 mg in 100 mls @ 100 mls/hr IVPB Q8 JOSE PRN Reason: Protocol Last Admin: 06/05/17 05:38 Dose: 100 mls/hr Aztreonam (Azactam 1 Gm) 100 mls @ 100 mls/hr IVPB Q8 JOSE PRN Reason: Protocol Stop: 06/11/17 11:01 Last Admin: 06/05/17 06:44 Dose: 100 mls/hr Insulin Human Regular (Humulin R High) 0 units SC ACHS [facility] PRN Reason: Protocol Last Admin: 06/05/17 08:59 Dose: Not Given Metoprolol Succinate (Toprol Xl) 50 mg PO DAILY [facility] Last Admin: 06/05/17 09:01 Dose: 50 mg Morphine Sulfate (Morphine) 2 mg IVP Q4H PRN PRN Reason: Pain, severe (8-10) Oxycodone/Acetaminophen (Percocet 5/325 Mg Tab) 1 tab PO Q4H PRN PRN Reason: Pain, moderate (4-7) Stop: 06/06/17 09:14 Last Admin: 06/04/17 00:52 Dose: 1 tab - Labs Labs: 06/05/17 06:40 06/05/17 06:40 PT 10.1 SECONDS (9.4-12.5) 06/03/17 03:20 INR 0.93 (0.93-1.08) 06/03/17 03:20 APTT 23.2 Seconds (25.1-36.5) L 06/03/17 03:20 - Constitutional Appears: Non-toxic - Head Exam Head Exam: NORMAL INSPECTION - ENT Exam ENT Exam: Mucous Membranes Moist - Neck Exam Neck Exam: absent: Lymphadenopathy, Meningismus - Respiratory Exam Respiratory Exam: Decreased Breath Sounds - Cardiovascular Exam Cardiovascular Exam: +S1, +S2 - GI/Abdominal Exam GI & Abdominal Exam: Guarding, Soft, Tenderness (in the lower quadrants). absent: Distended, Firm, Rigid, Rebound Assessment and Plan - Assessment and Plan (Free Text) Plan: Assessment Consider acute enterocolitis, R/O infectious etiology R/O ischemic colitis CAD S/P CABG S/P PCI DM HTN dyslipidemia chronic renal failure Plan has been given a dose of IV Vancomycin and continue Azactam and Flagyl day 3 pending stool cx, stool for C. diff., fecal leukocytes; blood cx are negative follow up further GI recommendations will continue to monitor clinically
--- NOTE | 2017-06-05 17:25 | CP.PCM.PN ---
<Pam Fonseca - Last Filed: 06/05/17 17:25> Subjective - Date & Time of Evaluation Date of Evaluation: 06/05/17 Time of Evaluation: 10:50 - Subjective Subjective: S&E earlier at bedside, diarrhea improving, soft this am, no more bleeding and abdominal pain has improved. Tolerating clear intake. No new complaints. Cdiff negative. Objective - Vital Signs/Intake and Output Vital Signs (last 24 hours): Temp Pulse Resp BP Pulse Ox 99 F 66 18 160/61 H 98 06/05/17 09:00 06/05/17 09:01 06/05/17 08:17 06/05/17 09:01 06/05/17 09:00 Intake and Output: 06/05/17 06/05/17 06:59 18:59 Intake Total 720 720 Output Total 400 Balance 320 720 - Medications Medications: Current Medications Acetaminophen (Tylenol 325mg Tab) 650 mg PO Q4H PRN PRN Reason: Pain, Mild (1-3) Last Admin: 06/04/17 07:46 Dose: 650 mg Aspirin (Aspirin Chewable) 81 mg PO DAILY [facility] Last Admin: 06/05/17 09:01 Dose: 81 mg Clopidogrel Bisulfate (Plavix) 75 mg PO DAILY [facility] Last Admin: 06/05/17 09:02 Dose: 75 mg Metronidazole (Flagyl) 500 mg in 100 mls @ 100 mls/hr IVPB Q8 JOSE PRN Reason: Protocol Last Admin: 06/05/17 14:20 Dose: 100 mls/hr Aztreonam (Azactam 1 Gm) 100 mls @ 100 mls/hr IVPB Q8 JOSE PRN Reason: Protocol Stop: 06/11/17 11:01 Last Admin: 06/05/17 15:35 Dose: 100 mls/hr Insulin Human Regular (Humulin R High) 0 units SC ACHS JOSE PRN Reason: Protocol Last Admin: 06/05/17 12:56 Dose: 7 units Metoprolol Succinate (Toprol Xl) 50 mg PO DAILY [facility] Last Admin: 06/05/17 09:01 Dose: 50 mg Morphine Sulfate (Morphine) 2 mg IVP Q4H PRN PRN Reason: Pain, severe (8-10) Oxycodone/Acetaminophen (Percocet 5/325 Mg Tab) 1 tab PO Q4H PRN PRN Reason: Pain, moderate (4-7) Stop: 06/06/17 09:14 Last Admin: 06/04/17 00:52 Dose: 1 tab - Labs Labs: 06/05/17 06:40 06/05/17 06:40 PT 10.1 SECONDS (9.4-12.5) 06/03/17 03:20 INR 0.93 (0.93-1.08) 06/03/17 03:20 APTT 23.2 Seconds (25.1-36.5) L 06/03/17 03:20 - Constitutional Appears: No Acute Distress - Eye Exam Eye Exam: Normal appearance. absent: Scleral icterus - ENT Exam ENT Exam: Mucous Membranes Moist - Respiratory Exam Respiratory Exam: NORMAL BREATHING PATTERN. absent: Respiratory Distress - Cardiovascular Exam Cardiovascular Exam: +S1, +S2 - GI/Abdominal Exam GI & Abdominal Exam: Soft, Normal Bowel Sounds. absent: Guarding, Tenderness, Organomegaly, Rebound - Extremities Exam Extremities Exam: absent: Calf Tenderness - Neurological Exam Neurological Exam: Alert, Awake, Oriented x3 - Skin Skin Exam: Dry, Warm Assessment and Plan - Assessment and Plan (Free Text) Assessment: ASSESSMENT: Acute abdominal pain/fever/diarrhea Infectious VS Ischemic Colitis CAD/CABG DM Dyslipidemia CKD PLAN: on Azactam/Flagyl as per ID monitor H/H on Aspirin and Plavix on clear liquid, diet advanced to heart healthy lunch recommend outpatient colonoscopy Seen and discussed w/ Dr. Vitale. <Ja Vitale V - Last Filed: 06/05/17 21:43> Objective - Vital Signs/Intake and Output Vital Signs (last 24 hours): Temp Pulse Resp BP Pulse Ox 98.8 F 59 L 20 151/43 H 99 06/05/17 16:00 06/05/17 16:00 06/05/17 16:00 06/05/17 16:00 06/05/17 16:00 Intake and Output: 06/05/17 06/06/17 18:59 06:59 Intake Total 720 Balance 720 - Medications Medications: Current Medications Acetaminophen (Tylenol 325mg Tab) 650 mg PO Q4H PRN PRN Reason: Pain, Mild (1-3) Last Admin: 06/04/17 07:46 Dose: 650 mg Aspirin (Aspirin Chewable) 81 mg PO DAILY [facility] Last Admin: 06/05/17 09:01 Dose: 81 mg Clopidogrel Bisulfate (Plavix) 75 mg PO DAILY [facility] Last Admin: 06/05/17 09:02 Dose: 75 mg Metronidazole (Flagyl) 500 mg in 100 mls @ 100 mls/hr IVPB Q8 JOSE PRN Reason: Protocol Last Admin: 06/05/17 14:20 Dose: 100 mls/hr Aztreonam (Azactam 1 Gm) 100 mls @ 100 mls/hr IVPB Q8 JOSE PRN Reason: Protocol Stop: 06/11/17 11:01 Last Admin: 06/05/17 15:35 Dose: 100 mls/hr Insulin Human Regular (Humulin R High) 0 units SC ACHS JOSE PRN Reason: Protocol Last Admin: 06/05/17 17:33 Dose: 2 units Metoprolol Succinate (Toprol Xl) 50 mg PO DAILY [facility] Last Admin: 06/05/17 09:01 Dose: 50 mg Morphine Sulfate (Morphine) 2 mg IVP Q4H PRN PRN Reason: Pain, severe (8-10) Oxycodone/Acetaminophen (Percocet 5/325 Mg Tab) 1 tab PO Q4H PRN PRN Reason: Pain, moderate (4-7) Stop: 06/06/17 09:14 Last Admin: 06/04/17 00:52 Dose: 1 tab - Labs Labs: 06/05/17 06:40 06/05/17 06:40 PT 10.1 SECONDS (9.4-12.5) 06/03/17 03:20 INR 0.93 (0.93-1.08) 06/03/17 03:20 APTT 23.2 Seconds (25.1-36.5) L 06/03/17 03:20 Attending/Attestation - Attestation I have personally seen and examined this patient.: Yes I have fully participated in the care of the patient.: Yes I have reviewed all pertinent clinical information, including history, physical exam and plan: Yes Notes (Text): This is an addendum to GI progress report dictated by Pam Fonseca APN.The patient was seen and examined earlier. Medical records, lab studies, imagings were reviewed. Last 24 hours events reviewed. Agreed with the above treatment plan as outlined in Pam Fonseca APN's notes the with the addition of the following Patient is tolerating the diet patient's was at bedside at the time of examination Colitis involving mainly in the ascending colon and terminal ileum Differential diagnosis includes infectious versus ischemia more in favor of infectious Complete the antibiotic course Patient would need a colonoscopic evaluation after 3 weeks 06/05/17 21:42
[2017-06-06] MEDS: Aztreonam 1 Gm in NS 100mL 100 ML IVPB SCH (05:44)
[2017-06-06] MEDS: metroNIDAZOLE IV 500 mg/100 ml 500 MG/100 ML BAG IVPB SCH (06:54)
[2017-06-06] MEDS: Insulin Reg-HIGH-Coverage SC SCH ×2 (08:30→12:06)
--- NOTE | 2017-06-06 09:00 | CP.PCM.PN ---
<Pam Fonseca - Last Filed: 06/06/17 09:01> Subjective - Date & Time of Evaluation Date of Evaluation: 06/06/17 Time of Evaluation: 08:57 - Subjective Subjective: S&E at bedside, chart reviewed, reports 3 semiloose BM yesterday, abdominal pain continues to decrease, tolerating oral intake,no more bloody BM. No other compliants. Objective - Vital Signs/Intake and Output Vital Signs (last 24 hours): Temp Pulse Resp BP Pulse Ox 98.8 F 59 L 20 151/43 H 99 06/05/17 16:00 06/05/17 16:00 06/05/17 16:00 06/05/17 16:00 06/05/17 16:00 Intake and Output: 06/06/17 06/06/17 06:59 18:59 Intake Total 760 Balance 760 - Medications Medications: Current Medications Acetaminophen (Tylenol 325mg Tab) 650 mg PO Q4H PRN PRN Reason: Pain, Mild (1-3) Last Admin: 06/04/17 07:46 Dose: 650 mg Aspirin (Aspirin Chewable) 81 mg PO DAILY [facility] Last Admin: 06/05/17 09:01 Dose: 81 mg Clopidogrel Bisulfate (Plavix) 75 mg PO DAILY [facility] Last Admin: 06/05/17 09:02 Dose: 75 mg Metronidazole (Flagyl) 500 mg in 100 mls @ 100 mls/hr IVPB Q8 JOSE PRN Reason: Protocol Last Admin: 06/06/17 06:54 Dose: 100 mls/hr Aztreonam (Azactam 1 Gm) 100 mls @ 100 mls/hr IVPB Q8 JOSE PRN Reason: Protocol Stop: 06/11/17 11:01 Last Admin: 06/06/17 05:44 Dose: 100 mls/hr Insulin Human Regular (Humulin R High) 0 units SC ACHS JOSE PRN Reason: Protocol Last Admin: 06/06/17 08:30 Dose: Not Given Metoprolol Succinate (Toprol Xl) 50 mg PO DAILY [facility] Last Admin: 06/05/17 09:01 Dose: 50 mg Morphine Sulfate (Morphine) 2 mg IVP Q4H PRN PRN Reason: Pain, severe (8-10) Oxycodone/Acetaminophen (Percocet 5/325 Mg Tab) 1 tab PO Q4H PRN PRN Reason: Pain, moderate (4-7) Stop: 06/06/17 09:14 Last Admin: 06/04/17 00:52 Dose: 1 tab - Labs Labs: 06/05/17 06:40 06/05/17 06:40 PT 10.1 SECONDS (9.4-12.5) 06/03/17 03:20 INR 0.93 (0.93-1.08) 06/03/17 03:20 APTT 23.2 Seconds (25.1-36.5) L 06/03/17 03:20 - Constitutional Appears: No Acute Distress - Eye Exam Eye Exam: Normal appearance. absent: Scleral icterus - ENT Exam ENT Exam: Mucous Membranes Moist - Neck Exam Neck Exam: Normal Inspection - Respiratory Exam Respiratory Exam: NORMAL BREATHING PATTERN. absent: Respiratory Distress - Cardiovascular Exam Cardiovascular Exam: +S1, +S2 - GI/Abdominal Exam GI & Abdominal Exam: Soft, Normal Bowel Sounds. absent: Guarding, Tenderness, Organomegaly, Rebound - Extremities Exam Extremities Exam: absent: Calf Tenderness, Pedal Edema - Neurological Exam Neurological Exam: Alert, Awake, Oriented x3 - Skin Skin Exam: Dry, Warm Assessment and Plan - Assessment and Plan (Free Text) Assessment: ASSESSMENT: Acute abdominal pain/fever/diarrhea, resolving Infectious VS Ischemic Colitis CAD/CABG DM Dyslipidemia CKD PLAN: on Azactam/Flagyl as per ID monitor H/H on Aspirin and Plavix continue heart healthy diet recommend outpatient colonoscopy in 3-4 weeks, discussed w/ patient. plan for DC home today, oral antibiotics as per ID Seen and discussed w/ Dr. Vitale. <Ja Vitale V - Last Filed: 06/07/17 02:04> Objective - Vital Signs/Intake and Output Vital Signs (last 24 hours): Temp Pulse Resp BP Pulse Ox 99.4 F 66 16 137/67 96 06/06/17 10:00 06/06/17 10:00 06/06/17 10:00 06/06/17 09:37 06/06/17 10:00 - Labs Labs: 06/05/17 06:40 06/05/17 06:40 PT 10.1 SECONDS (9.4-12.5) 06/03/17 03:20 INR 0.93 (0.93-1.08) 06/03/17 03:20 APTT 23.2 Seconds (25.1-36.5) L 06/03/17 03:20 Attending/Attestation - Attestation I have personally seen and examined this patient.: Yes I have fully participated in the care of the patient.: Yes I have reviewed all pertinent clinical information, including history, physical exam and plan: Yes Notes (Text): this patient was seen and evaluated here earlier. Tolerating the diet no further episodes of bleeding per rectum. On examination abdomen was soft and nontender Complete the antibiotic course as per ID Plan for discharge today Elective colonoscopic evaluation This is an addendum to the GI progress report dictated by Pam Fonseca APN 06/07/17 02:02
[2017-06-06 09:14] VITALS: BP 137/67; PULSE 66; TEMP 99.4; O2SAT 96
[2017-06-06] MEDS: Metoprolol Succinate 50 mg XL Tab PO SCH (09:37)
[2017-06-06 10:49] VITALS: RESP 16
--- NOTE | 2017-06-06 12:57 | CP.PCM.PN ---
Subjective - Date & Time of Evaluation Date of Evaluation: 06/06/17 Time of Evaluation: 11:20 - Subjective Subjective: Comfortable in bed, starting to eat solid foods, abdominal pain is improved, no more blood in the stool, no nausea or vomiting, no fevers overnight. Objective - Vital Signs/Intake and Output Vital Signs (last 24 hours): Temp Pulse Resp BP Pulse Ox 99.4 F 66 16 137/67 96 06/06/17 10:00 06/06/17 10:00 06/06/17 10:00 06/06/17 09:37 06/06/17 10:00 Intake and Output: 06/06/17 06/06/17 06:59 18:59 Intake Total 760 Balance 760 - Medications Medications: Current Medications Acetaminophen (Tylenol 325mg Tab) 650 mg PO Q4H PRN PRN Reason: Pain, Mild (1-3) Last Admin: 06/04/17 07:46 Dose: 650 mg Aspirin (Aspirin Chewable) 81 mg PO DAILY [facility] Last Admin: 06/06/17 09:38 Dose: 81 mg Clopidogrel Bisulfate (Plavix) 75 mg PO DAILY [facility] Last Admin: 06/06/17 09:38 Dose: 75 mg Metronidazole (Flagyl) 500 mg in 100 mls @ 100 mls/hr IVPB Q8 JOSE PRN Reason: Protocol Last Admin: 06/06/17 06:54 Dose: 100 mls/hr Aztreonam (Azactam 1 Gm) 100 mls @ 100 mls/hr IVPB Q8 JOSE PRN Reason: Protocol Stop: 06/11/17 11:01 Last Admin: 06/06/17 05:44 Dose: 100 mls/hr Insulin Human Regular (Humulin R High) 0 units SC ACHS JOSE PRN Reason: Protocol Last Admin: 06/06/17 08:30 Dose: Not Given Metoprolol Succinate (Toprol Xl) 50 mg PO DAILY [facility] Last Admin: 06/06/17 09:37 Dose: 50 mg Morphine Sulfate (Morphine) 2 mg IVP Q4H PRN PRN Reason: Pain, severe (8-10) - Labs Labs: 06/05/17 06:40 06/05/17 06:40 PT 10.1 SECONDS (9.4-12.5) 06/03/17 03:20 INR 0.93 (0.93-1.08) 06/03/17 03:20 APTT 23.2 Seconds (25.1-36.5) L 06/03/17 03:20 - Constitutional Appears: Non-toxic, No Acute Distress - Head Exam Head Exam: NORMAL INSPECTION - ENT Exam ENT Exam: Mucous Membranes Moist - Neck Exam Neck Exam: absent: Lymphadenopathy, Meningismus - Respiratory Exam Respiratory Exam: Decreased Breath Sounds - Cardiovascular Exam Cardiovascular Exam: +S1, +S2 - GI/Abdominal Exam GI & Abdominal Exam: Soft. absent: Tenderness Assessment and Plan - Assessment and Plan (Free Text) Plan: Assessment Consider acute enterocolitis, R/O infectious etiology R/O ischemic colitis, slowly improving CAD S/P CABG S/P PCI DM HTN dyslipidemia chronic renal failure Plan has been given a dose of IV Vancomycin and continue Azactam and Flagyl day 4 pending stool cx; stool for C. diff.is negative; blood cx are negative - when ready for discharge, the patient can be switched to PO Cipro and Flagyl - checked QTc of patient - it is less than 500 ms - should be observed as outpatient GI planning on colonoscopy as outpatient
== END 2017-06-06 14:21 | disposition home or self-care (01) | DRG 392 ==
LOC: ED 02:35 → ERH 05:12 → 5RSO 07:36 → OBSVTOIN 14:38 → 5RSO 06-05 09:55
PROVIDERS: ADMIT Internal Medicine Nephrology; ATTEND Internal Medicine Nephrology
DX: K52.9 Noninfective gastroenteritis and colitis, unspecified (principal); N18.4 Chronic kidney disease, stage 4 (severe); E11.22 Type 2 diabetes mellitus with diabetic chronic kidney disease; E78.5 Hyperlipidemia, unspecified; I25.10 Atherosclerotic heart disease of native coronary artery without angina pectoris; N28.9 Disorder of kidney and ureter, unspecified; I12.9 Hypertensive chronic kidney disease with stage 1 through stage 4 chronic kidney disease, or unspecified chronic kidney disease; E87.6 Hypokalemia; Z79.02 Long term (current) use of antithrombotics/antiplatelets; Z95.1 Presence of aortocoronary bypass graft; Z95.5 Presence of coronary angioplasty implant and graft; Z88.0 Allergy status to penicillin